=== PATIENT | female | born 1975 | race Caucasian/White ===

== ENCOUNTER 2017-02-08 04:51 | Inpatient (IN) | payer OTHER ==
[~2017-02-08] VITALS: Ht 152.4 cm; Wt 58.0 kg
[2017-02-08 06:54] LABS: BASOPHIL % 0.4 % (0-2); PLATELET COUNT 291 x10^3mcL (130-400)
[2017-02-08 07:04] LABS: CALCIUM 9.1 mg/dL (8.5-10.1); CHLORIDE SERUM 104 mmol/L (98-107); CREATININE SERUM 0.8 mg/dL (0.6-1.0); GFR1 > 60 mL/min; GLUCOSE SERUM 108 mg/dL (74-106); SODIUM SERUM 138 mmol/L (136-145)
[2017-02-08 07:06] LABS: RED CELL DISTRIBUTION WIDTH 14.8 % (11.5-14.5)
[2017-02-08 07:15] LABS: ALKALINE PHOSPHATASE 60 U/L (46-116); ALT/SGPT 22 U/L (14-59); AST/SGOT 13 U/L (15-37); BILIRUBIN TOTAL 0.4 mg/dL (0.20-1.00); T4(THYROXINE) 9.8 ug/dL (4.7-13.3); TOTAL PROTEIN, SERUM 7.7 g/dL (6.4-8.2)
[2017-02-08 07:23] LABS: AMPHETAMINE QUAL UR NONE DETECTED (NEG <=1000)
[2017-02-08 07:53] LABS: CHOLESTEROL/HDL RATIO 2.7
[2017-02-08 10:02] LABS: T3 TOTAL 1.08 ng/mL
[2017-02-08 10:08] LABS: AMYLASE 39 U/L (25-115); LIPASE 169 IU/L (73-393)
[2017-02-08 10:11] VITALS: BP 114/86
[2017-02-08 10:44] LABS: FREE T4 1.2 ng/dL (0.76-1.46); FREE THYROXINE INDEX 3.4 ug/dL (1.4-4.5); T4(THYROXINE) 10.1 ug/dL (4.7-13.3)
[2017-02-08 15:47] LABS: UA SPECIFIC GRAVITY <=1.005 (1.005-1.035); microscopic required? YES; urine erythrocyte NEGATIVE (NEGATIVE)
[2017-02-08 17:32] VITALS: BP 97/68
[2017-02-08 22:19] VITALS: BP 99/62
[2017-02-09 06:10] LABS: BASOPHIL % 0.6 % (0-2); PLATELET COUNT 274 x10^3mcL (130-400)
[2017-02-09 06:13] VITALS: BP 105/68
[2017-02-09 06:38] LABS: CALCIUM 8.3 mg/dL (8.5-10.1); CARBON DIOXIDE 23.2 mmol/L (21-32); CHLORIDE SERUM 105 mmol/L (98-107); CREATININE SERUM 0.7 mg/dL (0.6-1.0); GFR1 > 60 mL/min; GLUCOSE SERUM 93 mg/dL (74-106); MAGNESIUM 1.8 mg/dL (1.8-2.4); PHOSPHOROUS 3.3 mg/dL (2.5-4.9); POTASSIUM SERUM 3.6 mmol/L (3.5-5.1); SODIUM SERUM 138 mmol/L (136-145)
[2017-02-09 06:43] LABS: RED CELL DISTRIBUTION WIDTH 14.6 % (11.5-14.5)
[2017-02-09 09:53] VITALS: BP 102/68
[2017-02-09] MEDS ORDERED: LIPI10 PO (13:55)
[2017-02-09] MEDS ORDERED: TEN25 PO (13:55)
[2017-02-09] MEDS ORDERED: LEV250 PO (13:56)
[2017-02-09] MEDS ORDERED: PRI20 PO (13:57)
[2017-02-09 14:00] VITALS: BP 104/67
[2017-02-09 16:00] VITALS: BP 104/67
== END 2017-02-09 17:15 | disposition home or self-care (01) | DRG 206 ==
LOC: ED 04:51 → DU 08:53
PROVIDERS: Emergency Medicine; Family Medicine; ADMIT Family Medicine
DX: M94.0 Chondrocostal junction syndrome [Tietze] (principal); N39.0 Urinary tract infection, site not specified; R00.2 Palpitations; E78.5 Hyperlipidemia, unspecified; Z68.25 Body mass index [BMI] 25.0-25.9, adult
CPT/HCPCS: 83880; 84439; J1956; J7030